=== PATIENT | male | born 1955 | race Caucasian/White ===

== ENCOUNTER 2018-12-11 14:54 | Emergency (ER) | payer SELFPAY ==
[2018-12-11] MEDS ORDERED: MIDAZOLAM HCL 50 MG/100 ML RTUINJ ONE (15:10)
[2018-12-11 15:12] LABS: HEMATOCRIT 43.3 % (37.9-51.0); HEMOGLOBIN 14.1 g/dL (13.5-17.0); MEAN CORPUSCULAR HEMOGLOBIN 30.3 pg (27.0-33.4); MEAN CORPUSCULAR HGB CONC 32.7 g/dL (32.0-36.0); MEAN CORPUSCULAR VOLUME 93 fl (80-97); PLATELET COUNT 236 10^3/uL (150-450); RED BLOOD COUNT 4.66 10^6/uL (4.35-5.55); RED CELL DISTRIBUTION WIDTH 13.4 % (11.5-14.0); WHITE BLOOD COUNT 20.8 10^3/uL (4.0-10.5)
[2018-12-11 15:15] LABS: INTERNATIONAL RATION (INR) 1.08; PROTHROMBIN TIME 14.6 SEC (11.4-15.4)
[2018-12-11 15:16] LABS: PARTIAL THROMBOPLASTIN TIME 48.4 SEC (23.5-35.8)
[2018-12-11] MEDS ORDERED: MIDAZOLAM HCL 50 MG/100 ML RTUINJ IV PRN (15:19)
[2018-12-11] MEDS ORDERED: IPRATROPIUM/ALBUTEROL 0.5-2.5 MG/3 ML AMPUL NEB ONE ×2 (15:19→16:16)
[2018-12-11 15:30] LABS: BLOOD UREA NITROGEN 16 mg/dL (7-20); CALCIUM 8.8 mg/dL (8.4-10.2); CARBON DIOXIDE 25 mmol/L (22-30); CHLORIDE 105 mmol/L (98-107); GLUCOSE 196 mg/dL (75-110); POTASSIUM 4.2 mmol/L (3.6-5.0); SODIUM 139.3 mmol/L (137-145)
[2018-12-11 15:31] LABS: ALANINE AMINOTRANSFERASE 166 U/L (21-72); ALBUMIN 3.7 g/dL (3.5-5.0); ALCOHOL < 10 mg/dL (NONE DETECTED); ALKALINE PHOSPHATASE 80 U/L (38-126); ANION GAP 9 (5-19); ASPARTATE AMINO TRANSFERASE 164 U/L (17-59); BILIRUBIN,DIRECT 0.2 mg/dL (0.0-0.4); BILIRUBIN,TOTAL 0.4 mg/dL (0.2-1.3); CREATINE KINASE 184 U/L (55-170); TOTAL PROTEIN 6.1 g/dL (6.3-8.2)
[2018-12-11 15:42] LABS: CREATINE KINASE MB 1.89 ng/mL (<4.55)
[2018-12-11 15:43] LABS: TROPONIN I < 0.012 ng/mL
[2018-12-11 15:46] LABS: ABSOLUTE LYMPHOCYTES# (MANUAL) 6.2 10^3/uL (0.5-4.7); ABSOLUTE NEUTROPHILS# (MANUAL) 13.5 10^3/uL (1.7-8.2); BAND NEUTROPHILS % (MANUAL) 1 % (3-5); BASOPHILS % (MANUAL) 0 % (0-2); EOSINOPHILS % (MANUAL) 0 % (0-6); LYMPHOCYTES % (MANUAL) 24 % (13-45); MONOCYTES % (MANUAL) 5 % (3-13); SEGMENTED NEUTROPHILS % (MAN) 64 % (42-78); TOTAL CELLS COUNTED 100
[2018-12-11 15:53] LABS: PLATELET COMMENT ADEQUATE; PLATELET LARGE PRESENT; POLYCHROMASIA SLIGHT; TOXIC GRANULATION SLIGHT; TOXIC VACUOLATION PRESENT
--- NOTE | 2018-12-11 15:53 | RADIOLOGY REPORT (SQ) ---
EXAM DESCRIPTION: CT HEAD WITHOUT COMPLETED DATE/TIME: 12/11/2018 3:41 pm REASON FOR STUDY: t1 s/p intubation COMPARISON: CT brain 12/03/2015 TECHNIQUE: Axial images acquired through the brain without intravenous contrast. Images reviewed wi th bone, brain and subdural windows. Additional sagittal and coronal reconstructions were generated. Images stored on PACS. All CT scanners at this facility use dose modulation, iterative reconstruction, and/or weight based d osing when appropriate to reduce radiation dose to as low as reasonably achievable (ALARA). [facility]: Dose Right [facility]: CareDose [facility]: Dose Right [facility]: Teradose 4D [facility]: Acision RADIATION DOSE: CT Rad equipment meets quality standard of care and radiation dose reduction techniq ues were employed. CTDIvol: 53.2 mGy. DLP: 991 mGy-cm. mGy. LIMITATIONS: None. FINDINGS: VENTRICLES: Normal size and contour. CEREBRUM: No masses. No hemorrhage. No midline shift. No evidence for acute infarction. Normal gra y/white matter differentiation. No areas of low density in the white matter. CEREBELLUM: No masses. No hemorrhage. No alteration of density. No evidence for acute infarction. EXTRAAXIAL SPACES: No fluid collections. No masses. ORBITS AND GLOBE: No intra- or extraconal masses. Normal contour of globe without masses. CALVARIUM: No fracture. PARANASAL SINUSES: No fluid or mucosal thickening. SOFT TISSUES: No mass or hematoma. OTHER: No other significant finding. IMPRESSION: NORMAL BRAIN CT WITHOUT CONTRAST. EVIDENCE OF ACUTE STROKE: NO. COMMENT: Quality ID # [id number]: Final reports with documentation of one or more dose reduction techniques (e.g., Automated exposure control, adjustment of the mA and/or kV according to patient size, use of iterative reconstruction technique) TECHNICAL DOCUMENTATION: JOB ID: [id number] [employer]- All Rights Reserved Reading location - IP/workstation name: [email or web address]
--- NOTE | 2018-12-11 15:55 | RADIOLOGY REPORT (SQ) ---
EXAM DESCRIPTION: CT CERVICAL SPINE WITHOUT COMPLETED DATE/TIME: 12/11/2018 3:41 pm REASON FOR STUDY: fall, cardiac arrest COMPARISON: None. TECHNIQUE: Axial images acquired through the cervical spine without intravenous contrast. Images re viewed with lung, soft tissue and bone windows. Reconstructed coronal and sagittal MPR images review ed. Images stored on PACS. All CT scanners at this facility use dose modulation, iterative reconstruction, and/or weight based d osing when appropriate to reduce radiation dose to as low as reasonably achievable (ALARA). [facility]: Dose Right [facility]: CareDose [facility]: Dose Right [facility]: Teradose 4D [facility]: [employer] RADIATION DOSE: CT Rad equipment meets quality standard of care and radiation dose reduction techniq ues were employed. CTDIvol: 20.1 mGy. DLP: 471 mGy-cm. mGy. LIMITATIONS: None. FINDINGS: ALIGNMENT: Anatomic. MINERALIZATION: Normal. VERTEBRAL BODIES: No fractures or dislocation. DISCS: Severe disc degenerative disease of C3 through C5. FACETS, LATERAL MASSES, POSTERIOR ELEMENTS: No fractures. No dislocation. No acute findings. HARDWARE: None in the spine. VISUALIZED RIBS: No fractures. LUNG APICES AND SOFT TISSUES: Pulmonary edema and right pleural effusion in the included lung apices. Centrilobular emphysema. Partially imaged endotracheal tube and esophagogastric tube. OTHER: No other significant finding. IMPRESSION: 1. No fracture or static subluxation of the cervical spine. 2. Pulmonary edema and right pleural effusion in the included lung apices. TECHNICAL DOCUMENTATION: JOB ID: [id number] Quality ID # [id number]: Final reports with documentation of one or more dose reduction techniques (e.g., Au tomated exposure control, adjustment of the mA and/or kV according to patient size, use of iterative reconstruction technique) 2010 [employer]- All Rights Reserved Reading location - IP/workstation name: [email or web address]
--- NOTE | 2018-12-11 15:58 | RADIOLOGY REPORT (SQ) ---
EXAM DESCRIPTION: CHEST SINGLE VIEW COMPLETED DATE/TIME: 12/11/2018 3:46 pm REASON FOR STUDY: t1 s/p intubation COMPARISON: 12/03/2015 EXAM PARAMETERS: NUMBER OF VIEWS: One view. TECHNIQUE: Single frontal radiographic view of the chest acquired. RADIATION DOSE: NA LIMITATIONS: None. FINDINGS: LUNGS AND PLEURA: No acute pulmonary consolidation. Hyperinflation of the lungs. No pne umothorax or pleural effusion. MEDIASTINUM AND HILAR STRUCTURES: No masses. Contour normal. HEART AND VASCULAR STRUCTURES: Heart normal in size. Normal vasculature. BONES: No acute findings. HARDWARE: Endotracheal tube, tip of the tube is approximately 5.2 cm proximal to the wilfred. OTHER: No other significant finding. IMPRESSION: 1. Endotracheal tube, in appropriate location. 2. No evidence of acute pulmonary findings. TECHNICAL DOCUMENTATION: JOB ID: [id number] [employer]- All Rights Reserved Reading location - IP/workstation name: [email or web address]
[2018-12-11] MEDS ORDERED: VECURONIUM BROMIDE INJ 10 MG VIAL IV ONE (16:10)
[2018-12-11] MEDS ORDERED: ETOMIDATE INJ/PF 20 MG/10 ML SDV IV ONE (16:10)
[2018-12-11 16:13] LABS: VENOUS BLOOD BASE EXCESS -9.5 mmol/L; VENOUS BLOOD HCO3 24.1 mmol/L (20-32)
[2018-12-11 16:16] LABS: VENOUS BLOOD PCO2 97.4 mmHg (35-63); VENOUS BLOOD PH 7.01 (7.30-7.42)
[2018-12-11] MEDS ORDERED: METHYLPREDNISOLONE INJ 125 MG/2 ML SDV IV ONE (16:16)
[2018-12-11] MEDS ORDERED: ALBUTEROL SULFATE 0.083% NEB 2.5 MG/3 ML AMPUL NEB ONE (16:17)
[2018-12-11] MEDS ORDERED: LORAZEPAM INJ 2 MG/1 ML VIAL IV ONE (17:04)
[2018-12-11 17:10] VITALS: BP 211/138
--- NOTE | 2018-12-11 17:11 | ER Document Report ---
Entered by ARMAND LOVING SCRIBE 12/11/18 [id number] Acting as scribe for:ROSEANN ARMENTA DO ED General - General Stated Complaint: CARDIAC ARREST Time Seen by Provider: 12/11/18 15:05 Primary Care Provider: ELO GRAVES PA [ALLIED HEALTH PROFESSIONAL] - Follow up as needed Mode of Arrival: Medic Information source: Relative, Emergency Med Personnel Notes: Patient is a 63 year old male with HTN, COPD presents to the emergency department via EMS due to cardiac arrest. 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 Coworkers proceeded to administer CPR due to finding the patient unresponsive with no aginal respirations and no pulse. Upon EMS arrival the patient was in VFib and they proceeded to shock 4 times with one round of epi. ROSC was obtained with a blood pressure of 218/118 and they proceeded to administer 20mg Labetalol. Patent then began to become agitated and EMS adminis tered 2mg Ativan. Family at bedside states the patient is a heavy drinker and tobacco smoker. [facility] states patient has been out of his blood pressure and COPD medications for approximately 2 weeks. TRAVEL OUTSIDE OF THE [place] IN LAST 30 DAYS: No - Related Data Allergies/Adverse Reactions: No Known Allergies Allergy (Unverified 12/02/15 22:51) Past Medical History - General Information source: Patient - Social History Smoking Status: Current Every Day Smoker Cigarette use (# per day): Yes Chew tobacco use (# tins/day): No Smoking Education Provided: No Frequency of alcohol use: Heavy Drug Abuse: None Family History: CAD, Malignancy - Past Medical History Cardiac Medical History: Reports: Hx Hypertension Pulmonary Medical History: Reports: Hx COPD Review of Systems - Review of Systems -: Yes ROS unobtainable due to patient's medical condition Physical Exam - Vital signs Vitals: Temp 98.2 F 12/11/18 14:56 - Notes Notes: GENERAL: Unresponsive. Does not withdraw from painful stimuli. Spontaneous respirations. Moderate distress. HEAD: Normocephalic, atraumatic. EYES: Pupils equal, round, and reactive to light. Extraocular movements intact. ENT: Oral mucosa moist, tongue midline. NECK: Full range of motion. Supple. Trachea midline. LUNGS: Spontaneous shallow respirations being augmented with a bag valve mask. Expiratory wheezing. HEART: On school bus monitor, sinus rhythm at a rate of 89 per my interpretation. Regular rate and rhythm no murmurs gallops or rubs, ABDOMEN: Soft. Non-distended. Bowel sounds present in all 4 quadrants. EXTREMITIES: No edema, radial and dorsalis pedis pulses 2/4 bilaterally. No cyanosis. 2+ radial pulses, 1+ dorsalis pedis pulses bilaterally. NEUROLOGICAL: Unresponsive, babinski reflex absent. Does not withdraw from painful stimuli. PSYCH: Unresponsive. SKIN: Feet cold. Course - Re-evaluation Re-evalutation: 12/11/18 16:10 Patient is accepted for transfer to [facility] by Dr. Rosen. 12/11/18 17:01 Patient arrived following commands, not responding to painful stimuli, spontaneous respirations but oxygenation, protecting his airway well. Patient was intubated without any difficulty, placed on Versed for sedation, EKG does not reveal STEMI, CBC shows leukocytosis at 20.8, coags show PT of 14.6, INR of 1.08, PTT prolonged at 48.4, venous blood gas shows he is quite acidotic with a pH of 7.01 PCO2 of 97.4, CMP shows some prolongation of slightly elevated creatinine of 1.29, glucose elevated at 196, magnesium is normal, AST and ALT are both elevated consistent with alcohol use, cardiac enzymes negative, alcohol level is less than 10, patient is on a Versed drip, chest x-ray shows no signs of pneumonia, good tube placement, no pneumothorax, CT scan was ordered to rule out intracranial hemorrhage after falling and hitting his head and this was negative, CT scan of the neck was also ruled though ordered to rule out fracture after uncontrolled fall. It did show evidence of pulmonary edema and right pleural effusion of the included lung apices that was not seen on the chest x- ray. Patient was discussed with Dr. Marrufo at [facility], he is accepted to the hospital and will be taken directly to the [facility] [facility]. Helicopter should be late in the next 15 minutes. Patient has been given steroids and breathing treatments. No electrolyte abnormalities that need correction. - Vital Signs Vital signs: Temp Pulse Resp BP Pulse Ox 98.7 F 30 H 211/138 H 94 12/11/18 17:03 12/11/18 17:03 12/11/18 17:03 12/11/18 17:03 - Laboratory Result Diagrams: 12/11/18 14:53 12/11/18 14:53 Laboratory results interpreted by me: 12/11/18 12/11/18 12/11/18 14:53 14:53 14:53 WBC 20.8 H Band Neutrophils % 1 L Abs Neuts (Manual) 13.5 H Abs Lymphs (Manual) 6.2 H APTT 48.4 H VBG pH VBG pCO2 Creatinine 1.29 H Est GFR (Non-Af Amer) 57 L Glucose 196 H AST 164 H ALT 166 H Creatine Kinase 184 H Total Protein 6.1 L 12/11/18 14:53 WBC Band Neutrophils % Abs Neuts (Manual) Abs Lymphs (Manual) APTT VBG pH 7.01 L* VBG pCO2 97.4 H* Creatinine Est GFR (Non-Af Amer) Glucose AST ALT Creatine Kinase Total Protein Procedures - Intubation Orotracheal Airway evaluation: Copious secretions, Other - Many teeth missing. Mallampati Classification: Class 2 Medications: Etomidate, Vecuronium Intubation method: Orotracheal Blade type: Renato Blade size: 4 ETT size: 8.0 ETT secured at: Gums ETT secured at (cm): 22 Breath Sounds after Intubation: Equal End tidal CO2 confirmed: Yes Ventilator settings: SIMV Tidal volume: 450 FiO2: 40 Respirations: 16 Pressure support: 10 PEEP: 5 Post Intubation Xray: Yes Intubation Complications: No complications Critical Care Note - Critical Care Note Total time excluding time spent on procedures (mins): 80 Discharge - Discharge Clinical Impression: Cardiac arrest with ventricular fibrillation, COPD with acute exacerbation, Acute hypercapnic respiratory failure, Alcohol abuse Condition: Critical Disposition: ADMITTED INPATIENT Referrals: ELO GRAVES PA [ALLIED HEALTH PROFESSIONAL] - Follow up as needed I personally performed the services described in the documentation, reviewed and edited the documentation which was dictated to the scribe in my presence, and it accurately records my words and actions.
--- NOTE | 2018-12-11 17:41 | RADIOLOGY REPORT (SQ) ---
EXAM DESCRIPTION: CHEST SINGLE VIEW COMPLETED DATE/TIME: 12/11/2018 5:25 pm REASON FOR STUDY: decreased oxygenation COMPARISON: 12/11/2018 1747 hours EXAM PARAMETERS: NUMBER OF VIEWS: One view TECHNIQUE: Single frontal radiograph of the chest. RADIATION DOSE: N/A LIMITATIONS: None. FINDINGS: TEMPORARY SUPPORT DEVICES:ETT in expected location. NG tube courses below the kathy-diaphr agm in to the stomach. LUNGS AND PLEURA: No opacities. No masses. No effusions. No pneumothorax. MEDIASTINUM AND HILAR STRUCTURES: No masses. Contour normal. HEART AND VASCULAR STRUCTURES: Heart size normal. Normal vascularity. Aorta normal for age BONES: No acute findings. OTHER: No other significant finding. IMPRESSION: NO ACUTE RADIOGRAPHIC FINDING IN THE CHEST. SUPPORT DEVICE(S) IN EXPECTED LOCATIONS. TECHNICAL DOCUMENTATION: JOB ID: [id number] [employer]- All Rights Reserved Reading location - IP/workstation name: [email or web address]
--- NOTE | 2018-12-11 18:36 | EKG REPORT ---
SEVERITY:- ABNORMAL ECG - SINUS RHYTHM PROBABLE LEFT ATRIAL ABNORMALITY NONSPECIFIC INTRAVENTRICULAR CONDUCTION DELAY : Confirmed by: Genie Richards MD 11-Dec-2018 18:35:45
== END 2018-12-11 17:25 | disposition short-term general hospital (02) ==
LOC: ER 14:54
DX: I46.9 Cardiac arrest, cause unspecified (principal); J44.1 Chronic obstructive pulmonary disease with (acute) exacerbation; J96.02 Acute respiratory failure with hypercapnia; F10.10 Alcohol abuse, uncomplicated; F17.210 Nicotine dependence, cigarettes, uncomplicated; I10 Essential (primary) hypertension
CPT/HCPCS: 93005; 94640 ×2; 99291; 99292; 96374; 96375; 36415; 82553; 80307; 82550; 83735; 85025; 85610; 85730; 80053; 84484; 82803; 71045; 70450; 72125; 94660; 93010; 31500; J3490; J2930; J2060; J2250; J7620

== ENCOUNTER 2019-02-17 01:11 | Emergency (ER) | payer SELFPAY ==
--- NOTE | 2019-02-17 03:39 | ER Document Report ---
ED Blood Pressure Problem - General Chief Complaint: High Blood Pressure Stated Complaint: BLOOD PRESSURE Time Seen by Provider: 02/17/19 03:20 Primary Care Provider: MIKE ALLRED MD [Primary Care Provider] - Follow up in 3-5 days Notes: Patient is a 64-year-old male that comes emergency department for chief com plaint of blood pressure concerns. He states that he started to feel a vague lightheaded and a vague dizziness sensation, he states this usually happens when his blood pressure is elevated, he took his blood pressure and found that it was 228/100 something, he states that afterwards he took 20 mg of lisinopril and 25 mg of hydrochlorothiazide and came to the emergency department. He states he ne kamryn had a headache, chest pain, focal numbness or weakness, visual changes, and he has no current symptoms. Patient states that he had V. fib arrest at the beginning of the year, he now has an AICD in place. He denies feeling it fire. Past medical history includes COPD, former alcoholic and former smoker, states he stopped both after his V. fib arrest. Patient takes no other blood pressure medications. He states he checks his blood pressure 5 times daily and his average blood pressure is 140s systolic. Patient admits that he has been eating a lot of chips and salty foods while watching the basketball games. TRAVEL OUTSIDE OF THE [place] IN LAST 30 DAYS: No - Related Data Allergies/Adverse Reactions: No Known Allergies Allergy (Unverified 12/02/15 22:51) Past Medical History - General Information source: Patient - Social History Smoking Status: Former Smoker Chew tobacco use (# tins/day): No Frequency of alcohol use: quit in nov 3/wk before Drug Abuse: None Lives with: Family Family History: CAD, Malignancy Patient has suicidal ideation: No Patient has homicidal ideation: No - Past Medical History Cardiac Medical History: Reports: Hx Hypertension Pulmonary Medical History: Reports: Hx COPD Renal/ Medical History: Denies: Hx Peritoneal Dialysis Past Surgical History: Reports: Hx Cardiac Surgery - ICD placed in dec 09 Review of Systems - Review of Systems Constitutional: See HPI EENT: No symptoms reported Cardiovascular: See HPI Respiratory: No symptoms reported Gastrointestinal: No symptoms reported Genitourinary: No symptoms reported Male Genitourinary: No symptoms reported Musculoskeletal: No symptoms reported Skin: No symptoms reported Hematologic/Lymphatic: No symptoms reported Neurological/Psychological: No symptoms reported Physical Exam - Vital signs Vitals: Temp Pulse Resp BP Pulse Ox 97.2 F 88 19 212/104 H 96 02/17/19 01:30 02/17/19 01:30 02/17/19 01:30 02/17/19 01:30 02/17/19 01:30 - Notes Notes: GENERAL: Alert, interacts well. No acute distress. HEAD: Normocephalic, atraumatic. EYES: Pupils equal, round, and reactive to light. Extraocular movements intact. ENT: Oral mucosa moist, tongue midline. Oropharynx unremarkable. Airway patent. Nares patent, no nasal septal hematoma, TM's intact. NECK: Full range of motion. Supple. Trachea midline. LUNGS: Clear to auscultation bilaterally, no wheezes, rales, or rhonchi. No respiratory distress. HEART: Regular rate and rhythm. No murmur ABDOMEN: Soft, non-tender. Non-distended. Bowel sounds present in all 4 quadrants. GENITOURINARY: Deferred EXTREMITIES: Moves all 4 extremities spontaneously. No edema, normal radial and dorsalis pedis pulses bilaterally. No cyanosis. BACK: no cervical, thoracic, lumbar midline tenderness. No saddle anesthesia, normal distal neurovascular exam. NEUROLOGICAL: Alert and oriented x3. Normal speech. [cranial nerves II through XII grossly intact]. PSYCH: Anxious, speaking rapidly, however he is easily reassured SKIN: Warm, dry, normal turgor. No rashes or lesions noted. Course - Re-evaluation Re-evalutation: Initially patient was very anxious, when I evaluated him his blood pressure went back up after downtrending into the 170s. His physical examination however is very unremarkable. He has a normal neurological exam, no concerning physical exam findings. He denies headache, chest pain, or any current symptoms. I did discuss a CAT scan of the head but he declined, states he does not feel he needs it. I feel this is appropriate based on his normal neurological exam and lack of headache. Decision was made to perform some basic laboratory studies to make sure the patient was generally okay including kidney function. This was performed and unremarkable. Blood pressure did down trend into the 170s over 90s. This is approximately 25% change from his initial blood pressure is reported at home. I had a long discussion with patient. He states that he admits to eating a lot of salty foods this past week, after I discussed with him again just prior to discharge he also states he has been drinking caffeinated sodas such as Mountain Dew frequently this week. I recommended he abstain from this in the salt, continue current medication, record his blood pressures, follow-up with primary care. I also recommended he return if he worsens in any way, this was discussed in detail with patient and daughter. They state satisfaction and agreement with plan. Stable at time of discharge. - Vital Signs Vital signs: Temp Pulse Resp BP Pulse Ox 97.9 F 88 20 172/99 H 95 02/17/19 02:39 02/17/19 01:30 02/17/19 04:01 02/17/19 04:01 02/17/19 04:01 - Laboratory Result Diagrams: 02/17/19 03:45 02/17/19 03:45 Laboratory results interpreted by me: 02/17/19 02/17/19 03:45 03:45 WBC 11.2 H RBC 4.23 L Hgb 12.7 L Hct 36.2 L Sodium 136.9 L BUN 23 H Glucose 111 H Calcium 10.3 H Discharge - Discharge Clinical Impression: Elevated blood pressure reading Condition: Stable Disposition: HOME, SELF-CARE Additional Instructions: Continue lisinopril 20 mg daily and HCTZ 25 mg daily. Reduce salt intake. Follow-up with your primary care with your recorded blood pressures for additional adjustments. Return to the emergency department if you develop any concerning symptoms including headache, chest pain, weakness on one side of your body, visual henry ges, vomiting, or any other concerning symptoms. Referrals: MIKE ALLRED MD [Primary Care Provider] - Follow up in 3-5 days
[2019-02-17 03:57] LABS: ABSOLUTE BASOPHILS # (AUTO) 0.1 10^3/uL (0.0-0.2); ABSOLUTE EOSINOPHILS # (AUTO) 0.4 10^3/uL (0.0-0.6); ABSOLUTE LYMPHOCYTES (AUTO) 1.6 10^3/uL (0.5-4.7); ABSOLUTE NEUT (AUTO) 8.2 10^3/uL (1.7-8.2); BASOPHILS % (AUTO) 0.8 % (0-2); EOSINOPHILS % (AUTO) 3.4 % (0-6); HEMATOCRIT 36.2 % (37.9-51.0); HEMOGLOBIN 12.7 g/dL (13.5-17.0); LYMPHOCYTES % (AUTO) 13.9 % (13-45); MEAN CORPUSCULAR HEMOGLOBIN 30.1 pg (27.0-33.4); MEAN CORPUSCULAR HGB CONC 35.1 g/dL (32.0-36.0); MEAN CORPUSCULAR VOLUME 86 fl (80-97); MONOCYTES % (AUTO) 8.5 % (3-13); PLATELET COUNT 213 10^3/uL (150-450); RED BLOOD COUNT 4.23 10^6/uL (4.35-5.55); RED CELL DISTRIBUTION WIDTH 13.8 % (11.5-14.0); SEGMENTED NEUTROPHILS % (AUTO) 73.4 % (42-78); TOTAL CELLS COUNTED % (AUTO) 100 %; WHITE BLOOD COUNT 11.2 10^3/uL (4.0-10.5)
[2019-02-17 04:08] LABS: ANION GAP 7 (5-19); BLOOD UREA NITROGEN 23 mg/dL (7-20); CALCIUM 10.3 mg/dL (8.4-10.2); CARBON DIOXIDE 24 mmol/L (22-30); CHLORIDE 106 mmol/L (98-107); GLUCOSE 111 mg/dL (75-110); POTASSIUM 4.1 mmol/L (3.6-5.0); SODIUM 136.9 mmol/L (137-145)
[2019-02-17 04:19] VITALS: BP 172/99
== END 2019-02-17 04:26 | disposition home or self-care (01) ==
LOC: ER 01:11
DX: I10 Essential (primary) hypertension (principal); J44.9 Chronic obstructive pulmonary disease, unspecified; R42 Dizziness and giddiness; Z95.810 Presence of automatic (implantable) cardiac defibrillator
CPT/HCPCS: 36415; 80048; 85025; 99283